=== PATIENT | male | born 1975 | race Caucasian/White ===

== ENCOUNTER 2017-04-23 09:31 | Emergency (ER) | payer MEDICAID ==
[~2017-04-23] VITALS: Ht 172.7 cm; Wt 90.0 kg
[2017-04-23 09:39] VITALS: Ht 172.7 cm; Wt 90.0 kg
[2017-04-23 11:34] LABS: microscopic required? NO
[2017-04-23 11:43] LABS: UA SPECIFIC GRAVITY <=1.005 (1.005-1.035); urine erythrocyte NEGATIVE (NEGATIVE)
[2017-04-23 13:10] VITALS: BP 140/64
== END 2017-04-23 13:10 | disposition home or self-care (01) ==
LOC: ED 09:31
PROVIDERS: Emergency Medicine
DX: J11.1 Influenza due to unidentified influenza virus with other respiratory manifestations (principal); J98.01 Acute bronchospasm; N50.811 Right testicular pain
CPT/HCPCS: 87804; J2930; J7613; J7644; Q0092

== ENCOUNTER 2018-02-10 22:10 | Inpatient (IN) | payer MEDICAID ==
[~2018-02-10] VITALS: Ht 172.7 cm; Wt 89.8 kg
[2018-02-10 22:13] VITALS: Ht 172.7 cm; Wt 89.8 kg
[2018-02-10 22:52] LABS: BASOPHIL % 0.6 % (0-2); PLATELET COUNT 264 x10^3mcL (130-400); RED CELL DISTRIBUTION WIDTH 12.9 % (11.5-14.5)
[2018-02-10 23:03] LABS: microscopic required? NO
[2018-02-10 23:12] LABS: UA SPECIFIC GRAVITY 1.025 (1.005-1.035); urine erythrocyte NEGATIVE (NEGATIVE)
[2018-02-10 23:14] LABS: CALCIUM 8.8 mg/dL (8.5-10.1); CARBON DIOXIDE 27.2 mmol/L (21-32); CHLORIDE SERUM 103 mmol/L (98-107); CREATININE SERUM 0.9 mg/dL (0.7-1.3); GFR1 > 60 mL/min; GLUCOSE SERUM 116 mg/dL (74-106); POTASSIUM SERUM 3.8 mmol/L (3.5-5.1); SODIUM SERUM 142 mmol/L (136-145)
[2018-02-10 23:29] LABS: ALBUMIN 4.1 g/dL (3.4-5.0); ALKALINE PHOSPHATASE 126 U/L (46-116); ALT/SGPT 28 U/L (16-63); AMYLASE 69 U/L (25-115); AST/SGOT 18 U/L (15-37); BILIRUBIN TOTAL 0.59 mg/dL (0.20-1.00); CHOLESTEROL 178 mg/dL (<200); HDL CHOLESTEROL 50 mg/dL (40-60); LIPASE 179 IU/L (73-393); MAGNESIUM 2.2 mg/dL (1.8-2.4); T4(THYROXINE) 5.5 ug/dL (4.7-13.3); TOTAL PROTEIN, SERUM 8.2 g/dL (6.4-8.2)
[2018-02-10 23:31] LABS: AMPHETAMINE QUAL UR NONE DETECTED (See below)
[2018-02-11 01:00] LABS: CHOLESTEROL/HDL RATIO 3.7; PHOSPHOROUS 3.3 mg/dL (2.5-4.9)
[2018-02-11 01:06] LABS: T3 TOTAL 1.23 ng/mL
[2018-02-11 01:26] LABS: FREE T4 0.82 ng/dL (0.76-1.46); FREE THYROXINE INDEX 1.8 ug/dL (1.4-4.5); T4(THYROXINE) 5.4 ug/dL (4.7-13.3)
[2018-02-11 02:10] VITALS: BP 134/80
[2018-02-11 05:21] VITALS: BP 138/78
[2018-02-11 06:47] LABS: CALCIUM 8.7 mg/dL (8.5-10.1); CARBON DIOXIDE 28.9 mmol/L (21-32); CHLORIDE SERUM 107 mmol/L (98-107); CREATININE SERUM 0.8 mg/dL (0.7-1.3); GFR1 > 60 mL/min; GLUCOSE SERUM 105 mg/dL (74-106); SODIUM SERUM 142 mmol/L (136-145)
[2018-02-11 06:48] LABS: BASOPHIL % 0.6 % (0-2); PLATELET COUNT 228 x10^3mcL (130-400); RED CELL DISTRIBUTION WIDTH 12.6 % (11.5-14.5)
[2018-02-11 08:53] VITALS: BP 126/64
[2018-02-11 12:33] VITALS: BP 129/71
[2018-02-11 15:34] VITALS: BP 129/71
== END 2018-02-11 16:30 | disposition home or self-care (01) | DRG 243 ==
LOC: ED 22:10 → DU 02-11 00:22
PROVIDERS: Emergency Medicine; Family Medicine
DX: K21.9 Gastro-esophageal reflux disease without esophagitis (principal); D72.829 Elevated white blood cell count, unspecified; F10.239 Alcohol dependence with withdrawal, unspecified; Y90.0 Blood alcohol level of less than 20 mg/100 ml; Z68.30 Body mass index [BMI] 30.0-30.9, adult; Z87.891 Personal history of nicotine dependence; R74.8 Abnormal levels of other serum enzymes
CPT/HCPCS: 83880; 84439; G0480; J7030